=== PATIENT | male | born 1970 | race Caucasian/White ===

== ENCOUNTER 2017-03-24 13:22 | Day surgery (SDC) | payer BC, OTHER ==
[2017-03-24] MEDS ORDERED: IOPAMIDOL 300 (61%) 100 ML VIAL IV ONE (13:23)
[2017-03-24 14:16] LABS: ABSOLUTE NEUTROPHIL COUNT 7.4 K/mm3 (1.8-7.7); BASO # 0.1 K/mm3 (0.0-0.2); BASO % 0.4 % (0.2-1.0); EOS % 0.2 % (0.9-2.9); HEMATOCRIT 42.9 % (32.0-52.0); HEMOGLOBIN 13.9 gm/l (14.0-18.0); IMM NEUT # 0.1 K/mm3 (0-0.2); IMM NEUT% 0.6 % (0-1); LYMPH # 3.9 (1.0-4.8); MEAN CORPUSCULAR HEMOGLOBIN 28.8 pg (27.0-31.0); MEAN CORPUSCULAR HGB CONC 32.4 g/dl (33.0-37.0); MONO # 0.9 (0.0-0.8); MONO % 7.1 % (4-12); NEUT % 59.7 % (43-75); PLATELET COUNT 286 K/mm3 (130-400); RED CELL DISTRIBUTION WIDTH 13.1 % (11.5-14.5); SPECIFIC GRAVITY 1.015 (1.001-1.030); URINE BILIRUBIN NEGATIVE (NEGATIVE); URINE BLOOD TRACE (NEGATIVE); URINE GLUCOSE (UA) NEGATIVE (NEGATIVE); URINE LEUKOCYTE ESTERASE NEGATIVE (NEGATIVE); URINE NITRITE NEGATIVE (NEGATIVE); URINE PROTEIN 1+ (NEGATIVE); URINE UROBILINOGEN NORMAL (0-1 mg/dl)
[2017-03-24 14:21] LABS: URINE APPEARANCE CLEAR; URINE COLOR YELLOW
[2017-03-24 14:37] LABS: ALB/GLOB RATIO 1.3 (>1.0); ALBUMIN 4.4 gm/dL (3.5-5.7); CALCIUM 9.3 mg/dL (8.6-10.3)
[2017-03-24 14:57] LABS: URINE BACTERIA 0; URINE EPITHELIAL CELLS FEW /hpf; URINE RBC 0-1 /hpf; URINE WBC NEG /hpf
--- NOTE | 2017-03-24 15:16 | CT ---
Exam Type: ABD/PELVIS W/ CON Date and Time: 03/24/2017 1:51 PM Clinical information: Right lower quadrant pain Comparison: None Technique: Contiguous axial 4 mm images were obtained from the lung bases through the pelvis after the uneventful IV administration of 100 cc of Isovue-300. Sagittal and coronal reformations with high resolution lung algorithm images were also obtained at this time. CT DI: 22.5 DLP 1156.1 FINDINGS: Lung base :No abnormality is identified at the lung bases. Visualized heart:There is no pericardial effusion. LIVER: within normal limits. BILE DUCTS: normal caliber. GALLBLADDER: No calcified gallstones. Normal caliber wall. PANCREAS: Mild diffuse fatty infiltration. No focal lesion. SPLEEN: within normal limits. ADRENALS: within normal limits. KIDNEYS: within normal limits. Stomach and small BOWEL: Normal caliber. Large bowel: Air and stool are noted within the large bowel. Appendix is dilated measuring upward 13 mm on axial image 71. Periapical fat stranding is also present. No abscess or free air. LYMPH NODES: No enlarged mesenteric lymph nodes. PERITONEUM: no ascites or free air, no fluid collection. VESSELS: within normal limits RETROPERITONEUM: within normal limits. ABDOMINAL WALL: within normal limits. Bladder: Decompressed. BONES: Mild degenerative changes of the spine. IMPRESSION: Simple appendicitis. Other incidental findings as above. Findings were called to Dr. Veliz at approximately 1508 hours on 03/24/2017.
[2017-03-24] MEDS ORDERED: METRONIDAZOLE 500 MG/NS 100 ML 100 ML IV ONE (15:26)
[2017-03-24] MEDS ORDERED: CEFTRIAXONE 1 GRAM DUPLEX 50 ML IV ONE (15:26)
[2017-03-24] MEDS ORDERED: MIDAZOLAM HCL 1 MG/ML 2ML VIAL ONE (15:38)
[2017-03-24] MEDS ORDERED: FENTANYL 250 MCG/5 ML AMP ONE (15:38)
[2017-03-24] MEDS ORDERED: LIDOCAINE 1%/EPI 1:100,000 (MULTI DOSE) 30 ML VIAL ONE (15:46)
[2017-03-24] MEDS ORDERED: CITRIC ACID/SODIUM CITRATE 15 ML UDCUP PO ONE (15:52)
[2017-03-24] MEDS ORDERED: LACTATED RINGERS 1,000 ML ONE (15:55)
[2017-03-24] MEDS ORDERED: LIDOCAINE 2% (PRES FREE) 5 ML VIAL ONE (16:00)
[2017-03-24] MEDS ORDERED: ROCURONIUM BROMIDE 10 MG/ML DOSE IV ONE (16:00)
[2017-03-24] MEDS ORDERED: DIPHENHYDRAMINE HCL 50 MG/1 ML VIAL ONE (16:00)
[2017-03-24] MEDS ORDERED: GLYCOPYRROLATE 0.2 MG/ML 1ML VIAL ONE (16:00)
[2017-03-24] MEDS ORDERED: DEXAMETHASONE SOD PHOS 4 MG/1 ML VIAL ONE (16:00)
[2017-03-24] MEDS ORDERED: ONDANSETRON 4 MG/2ML 2 ML VIAL ONE (16:00)
[2017-03-24] MEDS ORDERED: SUCCINYLCHOLINE CHL 20 MG/ML DOSE ONE (16:00)
[2017-03-24] MEDS ORDERED: PROPOFOL 20 ML IV ONE (16:00)
[2017-03-24] MEDS ORDERED: NEOSTIGMINE METHYLSULFATE 1 MG/ML DOSE ONE (16:00)
--- NOTE | 2017-03-24 16:12 | PDOC1 ---
HPI: Date of Admission: 03/24/17 Chief Complaint: abdominal pain History of Present Illness: 47 y/o M with several attacks of abdominal pain that usually start in the evening and get better by the morning. Last night developed the abdominal pain and some nausea after dinner. Slept all night and by morning wasn't feeling any better. Was worse. He was throwing up in the morning. He last ate at 9am. No Fevers but did have chills in the night. No diarrhea. No sick contacts. Pain started periumbilical and now is in RLQ. No other symptoms. PMH: vocal cord polyp, SVT (now ablated), hypercholesterolemia, reflux PSH: Right index finger surgery, AV ricarda ablation, vocal cord polyp removal Medications: cholesterol and reflux medication Allergies: NKDA SH: rare EtOH, Denies tobacco, denies illicit drug use FH: reviewed and non contributory - Review of Systems Reports Nausea, Reports Vomiting, Denies Chest Pain, Denies Shortness of Breath , Denies Cough, Denies Sputum, Denies Diarrhea, Denies Headache, Denies Other H&P Objective GS - Objective Laboratory Results - last 24 hr 03/24/17 13:40 WBC 12.3 H RBC 4.82 Hgb 13.9 L Hct 42.9 MCV 89.0 MCH 28.8 MCHC 32.4 L RDW 13.1 Plt Count 286 Neut % (Auto) 59.7 Lymph % (Auto) 32.0 [place] % (Auto) 7.1 Baso % (Auto) 0.4 Absolute Neuts (auto) 7.4 Eosinophils % 0.2 L Sodium 138 Potassium 4.0 Chloride 103 Carbon Dioxide 27 Anion Gap 12 BUN 13 Creatinine 1.0 Estimated GFR 79 BUN/Creatinine Ratio 13 Glucose 86 Calcium 9.3 Total Bilirubin 0.4 AST 15 ALT 18 Alkaline Phosphatase 76 Total Protein 7.9 Albumin 4.4 Globulin 3.5 Albumin/Globulin Ratio 1.3 Lipase 28 Urine Color Yellow Urine Appearance Clear Urine pH 6.0 Ur Specific [place] 1.015 Urine Protein 1+ Urine Glucose (UA) Negative Urine Ketones Negative Urine Blood Trace Urine Nitrite Negative Urine Bilirubin Negative Urine Urobilinogen Normal Ur Leukocyte Esterase Negative Urine RBC 0-1 Urine WBC Neg Ur Epithelial Cells Few Urine Bacteria 0 % Immature Granulocyt 0.6 General: Alert, Oriented x3, Cooperative, No Acute Distress HEENT: Atraumatic, PERRLA, EOMI, Mucous membr. moist/pink Lungs: Clear to Auscultation Bilaterally, Normal Air Movement Cardiovascular: Regular Rate and Rhythm, Normal S1, Normal S2. negative: Murmur Abdomen: Soft, Tenderness (RLQ only, negative rovsing's, no peritoneal signs), Non-Distended, Normal Bowel Sounds Extremities: Normal Cap Refill, Normal Pulses. negative: Edema Skin: Normal Color, Warm, Dry, Intact Psych/Mental Status: Normal Affect, Normal Mood - Assessment/ Plan (1) Appendicitis, acute Current Visit: Yes Status: Acute Code: K35.80Discussed with the patient he is early appendicitis, low WBC, no signs of perforation But will multiple attacks would like to proceed with surgery ABX given in ED - Procedure, Risks, Alternatives, Question PARQ: I discussed the procedure of laparoscopic appendectomy. We discussed risks including bleeding, infection, and possible need to open. I addressed the patient's/family's concerns and questions. The patient/family expressed understanding and willingness to proceed.
[2017-03-24] MEDS ORDERED: PROMETHAZINE HCL 25 MG/ML VIAL IM PRN (16:38)
[2017-03-24] MEDS ORDERED: ONDANSETRON 4 MG/2ML 2 ML VIAL IV PRN ×2 (16:38→17:57)
[2017-03-24] MEDS ORDERED: HYDROMORPHONE HCL 1 MG/ML SYRINGE IV PRN ×2 (16:38→17:57)
[2017-03-24] MEDS ORDERED: NALOXONE HCL 0.4 MG/ML VIAL IV PRN (16:38)
[2017-03-24] MEDS ORDERED: ATROPINE SULFATE 0.4 MG/1 ML VIAL IV PRN (16:38)
[2017-03-24] MEDS ORDERED: LACTATED RINGERS 1,000 ML IV SCH ×2 (16:45→17:57)
[2017-03-24] MEDS ORDERED: KETOROLAC TROMETHAMINE 30 MG/ML 1 ML VIAL ONE (16:52)
[2017-03-24] MEDS ORDERED: FENTANYL 100 MCG/2 ML VIAL ONE ×2 (16:59→17:35)
--- NOTE | 2017-03-24 17:07 | PCMON ---
Date of Procedure: 03/24/17 PREOPERATIVE DIAGNOSIS Acute appendicitis. POSTOPERATIVE DIAGNOSIS Acute appendicitis w/o perforation. PROCEDURE PERFORMED Laparoscopic appendectomy. COMPLICATIONS None. OPERATIVE FINDINGS Acute appendicitis w/o perforation ESTIMATED BLOOD LOSS 30 ml BRIEF INDICATIONS RESHMA PICKARD is a 47 year old M patient that was admitted with symptoms of acute appendicitis. The preoperative CBC revealed a normal WBC, physical examination demonstrated RLQ abdominal tenderness, and CT scan supported the diagnosis of acute appendicitis. Risks and benefits of surgery were explained to the patient, including the risk of bowel resection, stoma creation and the possible need for conversion to open technique. The patient declined the possible alternatives and agreed to proceed with surgery, providing informed consent. DESCRIPTION OF PROCEDURE The patient was brought to the operating room and placed supine on the operating room table. A surgical briefing was held to verify the correct patient and correct procedure. A general anesthetic was induced uneventfully, followed by the administration of a subcutaneous heparin injection and perioperative antibiotics. Pneumatic compression stockings were placed on the legs and powered on. A Harvey catheter was placed to closed gravity drainage. The abdomen was prepped and draped in a sterile fashion. A 5-mm direct optical view trocar was used to enter the Right upper quadrant under direct vision of the abdominal wall layers. Once inside the abdominal cavity, a pneumoperitoneum was created. No injury to underlying structures occurred with placement of this trocar. Once inside the abdominal cavity, an additional 12-mm port was placed in the Left lower quadrant. An additional 5- mm port was placed in the midline just above the pubis. All trocars were placed under direct visualization. There was no injury to underlying structures with placement of these trocars. The patient was placed in Trendelenburg position with the right side up. The appendix was visualized at the base of the cecum. The appendix was mobilized allowing identification of the mesoappendix and the base of the appendix. The cecum was not involved by the appendiceal inflammation. A window was created at the base between the appendix and the mesoappendix, and the appendix was then amputated at its base with a white load Endo YOKO stapler. The mesentery of the appendix was then divided with a ligasure. The appendix was then removed through the 12-mm port using an Endocatch bag. The staple lines were evaluated for hemostasis; no hemorrhage was identified. The RLQ was irrigated with warm saline. The left lower quadrant direct laparoscopic vision, and the fascia was closed with the Gunnar Tom and an 0 -Vicryl. The rest of the ports were removed. The pneumoperitoneum was then evacuated. All of the ports and instruments were removed. The skin was closed with 4-0 absorbable subcuticular sutures. Steri-Strips were placed over the incisions and sterile dressings applied. The needle and sponge counts were correct x2 at the completion of the procedure. The patient had no apparent intraoperative complication identified.
[2017-03-24] MEDS: FENTANYL 100 MCG/2 ML VIAL IV PRN ×2 (17:40→17:46)
[2017-03-24] MEDS ORDERED: OXYCODONE/ACETAMINOPHEN 5/325 MG TABLET PO PRN (17:57)
[2017-03-24] MEDS ORDERED: HYDROMORPHONE HCL 0.5 MG/0.5 ML SYRINGE IV PRN (18:14)
[2017-03-24] MEDS ORDERED: PUMP TUBING ONE (18:21)
[2017-03-24 18:42] VITALS: BMI 40.8
[2017-03-24 21:07] VITALS: BP 119/76
[2017-03-24] MEDS ORDERED: KETOROLAC TROMETHAMINE 30 MG/ML 1 ML VIAL IV PRN (23:00)
--- NOTE | 2017-03-27 14:54 | SURGPATH ---
[facility] [address] [place] [id number] Patient Name: RESHMA PICKARD I. MR#: [id number] : 1970 Gender: M Specimen #: [id number] Collected: 03/24/2017 Received: 03/26/2017 Reported: 03/27/2017 Submitting Phys: DANNI RAYGOZA Copy To Phys: PRISCILA BURROWS [facility] Clinical History / Pre-Operative Diagnosis: Appendicitis Specimen Source / Surgical Procedure Performed: Appendix Interpretation: APPENDIX, APPENDECTOMY: - ACUTE APPENDICITIS Electronically Signed Out Geri Clarke M.D. Gross Description: The specimen is received in formalin labeled with the patient's name and "appendix". The specimen consists of a 6 cm in length and 0.5-1.2 cm in diameter vermiform appendix with attached mesoappendix. The base is stapled and exudate is not identified. The mucosa is minimally hemorrhagic. A perforation or obstruction is not identified. Warp Tension Tester tissue is submitted. A. base and tip B. central appendix GEETHA Randhawa Microscopic Description: Sections from the appendix show fibrous obliteration of the appendiceal lumen. The proximal portion of the appendix shows mucosal ulceration with transmural acute inflammation. [id number]: [id number] K35.80
== END 2017-03-24 20:40 | disposition home or self-care (01) ==
LOC: ED 13:22 → SDC 15:43 → MS 19:21 → SDC 20:40
PROVIDERS: ATTEND Surgery
PROC: 0DTJ4ZZ Resection of Appendix, Percutaneous Endoscopic Approach (ICD-10-PCS; principal; 2017-03-24)
DX: K35.80 Unspecified acute appendicitis (principal); K21.9 Gastro-esophageal reflux disease without esophagitis; E78.00 Pure hypercholesterolemia, unspecified
CPT/HCPCS: 83690; 85025; 80053; 81001; 74177; 44970; J1200; J3010 ×3; J1100; A9270; J1885; J2250; J2001; J2405; J7120 ×2; Q9967; J0696